=== PATIENT | female | born 1985 | race African-American/Black ===

== ENCOUNTER 2024-03-08 17:32 | Inpatient (IN) | payer OTHER ==
[2024-03-08 19:23] VITALS: BMI 29.3
[2024-03-08] MEDS ORDERED: MAG HYDROX/AL HYDROX/SIMETH 30 ML UNIT-DOSE CUP PO PRN (20:55)
[2024-03-08] MEDS ORDERED: IBUPROFEN 400 MG TABLET (FP) PO PRN (20:55)
[2024-03-08] MEDS ORDERED: LOPERAMIDE HCL 2 MG CAPSULE PO PRN (20:55)
[2024-03-08] MEDS ORDERED: POLYETHYLENE GLYCOL (HEALTHYLAX) 3350 17 GM PACKET PO PRN (20:55)
[2024-03-08] MEDS ORDERED: BENZONATATE 200 MG CAPSULE PO PRN (20:55)
[2024-03-08] MEDS ORDERED: guaiFENesin 600 MG TABLET.ER (FP) PO PRN (20:55)
[2024-03-08] MEDS ORDERED: IBUPROFEN 600 MG TABLET (FP) PO PRN (20:55)
[2024-03-08] MEDS ORDERED: BENZOCAINE/MENTHOL (CHLORASEPTIC ) LOZENGE MM PRN (20:55)
[2024-03-09] MEDS: THIAMINE 100 MG TABLET PO SCH (01:30)
[2024-03-09] MEDS: MELATONIN 5 MG TABLETS PO SCH (01:30)
[2024-03-09] MEDS: TUBERCULIN PPD 5 TU/0.1ML SYRINGE (IN PATIENT USE ONLY) ID ONE (09:18)
[2024-03-09] MEDS: PRENATAL VITAMINS W/ FOLIC ACID TABLET (FP) PO SCH (09:18)
[2024-03-09 11:50] LABS: POTASSIUM 3.7 mmol/L (3.5-5.1)
[2024-03-09 11:51] LABS: HEMATOCRIT 36.1 % (32.4-45.2); HEMOGLOBIN 12.4 GM/dL (10.7-15.3); MCH 32.1 pg (25.7-33.7); MCHC 34.2 g/dl (32.0-36.0); MEAN CELL VOLUME 93.7 fl (80-96); MEAN PLT VOLUME 7.8 fl (7.5-11.1); PLATELET COUNT 330 10^3/uL (134-434); RBC 3.86 M/mm3 (3.60-5.2); RDW 15.4 % (11.6-15.6); WHITE BLOOD COUNT 7.9 K/mm3 (4.0-10.0)
[2024-03-09 11:56] LABS: CALCIUM 8.5 mg/dL (8.5-10.1)
[2024-03-09 11:57] LABS: ALBUMIN 3.6 g/dl (3.4-5.0)
[2024-03-09 12:00] LABS: CREATININE 0.6 mg/dL (0.55-1.3)
[2024-03-09 12:01] LABS: BILIRUBIN,TOTAL 0.4 mg/dL (0.2-1); TOT PROT 7.2 g/dl (6.4-8.2)
[2024-03-09] MEDS: QUEtiapine FUMARATE 200 MG TABLET PO SCH (21:46)
[2024-03-12] MEDS: MAGNESIUM HYDROX 2400MG/30ML ORAL SUSPENSION 30 ML CUP PO PRN (13:21)
[2024-03-12 14:55] LABS: EPI CELLS >36 /uL (0-25.1); HYALINE CASTS 1 /uL (0-3.1); PH,URINE 6.5 (5.0-8.0); URINE APPEARANCE CLOUDY; URINE BACTERIA 1199 /uL (0-1359); URINE BILIRUBIN NEGATIVE (NEGATIVE); URINE COLOR YELLOW; URINE GLUCOSE (UA) NEGATIVE (NEGATIVE); URINE KETONE NEGATIVE (NEGATIVE); URINE LEUK ESTERASE 2+ (NEGATIVE); URINE NITRITE NEGATIVE (NEGATIVE); URINE PROTEIN NEGATIVE (NEGATIVE); URINE RBC 13 /uL (0-23.9); URINE UROBILINOGEN 0.2 mg/dL (0.2-1.0); URINE WBC 92 /uL (0-25.8)
[2024-03-17 07:01] VITALS: BP 127/66; PULSE 86; RESP 16; TEMP 97.4
[2024-03-17] MEDS: ACETAMINOPHEN 325 MG TABLET (FP) PO PRN (09:35)
== END 2024-03-17 09:00 | disposition home or self-care (01) | DRG 772 ==
LOC: YASAS 17:32 → Y3NR 23:53 → Y5N 03-11 12:32
PROVIDERS: ADMIT Allergy & Immunology; ATTEND Psychiatry & Neurology Pain Medicine
PROC: HZ42ZZZ Group Counseling for Substance Abuse Treatment, Cognitive-Behavioral (ICD-10-PCS; principal; 2024-03-08)
DX: F14.20 Cocaine dependence, uncomplicated (principal); Z56.0 Unemployment, unspecified; Z59.00 Homelessness unspecified
CPT/HCPCS: 36415; 80053; 80305; 80307; 81003; 81025; 85027; 86780; 87811; 93005; 93010